=== PATIENT | male | born 1995 | race American Indian/Alaskan Native ===

== ENCOUNTER 2017-07-02 22:17 | Emergency (ER) | payer SELFPAY ==
[2017-07-03] MEDS ORDERED: DUONEB *Not for PRN Use IH ONE (02:28)
[2017-07-03] MEDS ORDERED: DELTASONE PO ONE (02:29)
--- NOTE | 2017-07-03 02:44 | Emergency Department Report ---
Minor Respiratory - HPI Chief Complaint: Upper Respiratory Infection Stated Complaint: COUGH, SNEEZE Time Seen by Provider: 07/03/17 02:28 Duration: 1 wek Severity: mild Minor Respiratory: Yes Able to Tolerate Fluids, Yes Cough, No Rhinorrhea, No Sore Throat, No Ear Pain, No Sick Contacts, No Hemoptysis, No Chest Pain, No Shortness of Breath, No Fever Other History: 21-year-old male with no past medical history has presented to ED complaining of cough. Onset was one week prior. Patient states cough is nonproductive in nature. Cough Intermittent, worse when he is at work and in [employer] freezer, improves and he is at home. Cough has been accompanied with sneezing. Pertinent negatives: Fever/chills, and headache, neck pain, chest pain , hemoptysis. Patient denies recent travel, TB exposure, sick contact exposure. ED Review of Systems ROS: Stated complaint: COUGH, SNEEZE Other details as noted in HPI Constitutional: denies: chills, fever Eyes: denies: eye pain, eye discharge, vision change ENT: congestion. denies: ear pain, throat pain Respiratory: cough. denies: orthopnea, shortness of breath, SOB with exertion, SOB at rest, wheezing Cardiovascular: denies: chest pain, palpitations Endocrine: no symptoms reported Gastrointestinal: denies: abdominal pain, nausea, diarrhea Genitourinary: denies: urgency, dysuria Musculoskeletal: denies: back pain, joint swelling, arthralgia Skin: denies: rash, lesions Neurological: denies: headache, weakness, paresthesias Psychiatric: denies: anxiety, depression Hematological/Lymphatic: denies: easy bleeding, easy bruising ED Past Medical Hx - Social History Smoking Status: Never Smoker Substance Use Type: None - Medications Home Medications: Home Medications Medication Instructions Recorded Confirmed Last Taken Type ALBUTEROL Inhaler [ProAir HFA 1 puff IH QID #1 inha 07/03/17 Unknown Rx Inhaler] Benzonatate [Tessalon Perles] 100 mg PO Q8HR #20 capsule 07/03/17 Unknown Rx predniSONE [Deltasone] 50 mg PO QDAY #4 tab 07/03/17 Unknown Rx Minor Respiratory Exam - Exam General: Vital signs noted. No distress. Alert and acting appropriately. HEENT: Yes Moist Mucous Membranes, No Pharyngeal Erythema, No Pharyngeal Exudates, No Rhinorrhea, No Conjuctival Injection, No Frontal Tenderness, No Maxillary Tenderness Ear: Neither TM Bulge, Neither TM Erythema, Neither EAC Pain, Neither EAC Discharge Neck: Yes Supple, No Adenopathy Lungs: Yes Good Air Exchange, No Wheezes, No Ronchi, No Stridor, No Cough, No Labored Respirations, No Retractions, No Use of Accessory Muscles, No Other Abnormal Lung Sounds Heart: Yes Regular, No Murmur Abdomen: Yes Normal Bowel Sounds, No Tenderness, No Peritoneal Signs Skin: No Rash, No Edema Neurologic: Alert and oriented, no deficits. Musculoskeletal: Unremarkable. ED Course Vital Signs 07/02/17 23:50 Temperature 98.5 F Pulse Rate 77 Respiratory 18 Rate Blood Pressure 129/74 [Left] O2 Sat by Pulse 98 Oximetry - Reevaluation(s) Reevaluation #1: 07/03/17 02:43 pt taken to radiology dept in wheelchair, comfortably in appearance Reevaluation #2: 07/03/17 03:07 pt states symptoms have improved with breathing treatment ED Medical Decision Making - Radiology Data interpreted by me: CXR- negative for acute findings - Medical Decision Making 21-year-old male presenting to the ED complaining of a week of cough and runny nose. Patient likely has upper respiratory infection. Chest x-ray was negative for signs of pneumonia. Patient agrees he feels stable discharge home and follow-up with PCP follow up. Patient verbalized understanding of return precautions. - Differential Diagnosis TB, PE, pneumothorax Critical Care Time: No Critical care attestation.: If time is entered above; I have spent that time in minutes in the direct care of this critically ill patient, excluding procedure time. ED Disposition Clinical Impression: Bronchitis, Cough Clinical Impression: (Ruled Out): Cough due to ALINA inhibitor Disposition: DC-01 TO HOME OR SELFCARE Is pt being admited?: No Does the pt Need Aspirin: No Condition: Good Instructions: Chronic Bronchitis (ED) Prescriptions: ALBUTEROL Inhaler [ProAir HFA Inhaler] 1 puff IH QID #1 inha Benzonatate [Tessalon Perles] 100 mg PO Q8HR #20 capsule predniSONE [Deltasone] 50 mg PO QDAY #4 tab Referrals: PRIMARY CARE, [Primary Care Provider] - 3-5 Days NIKKI RASHEED MD [Staff Physician] - 3-5 Days Forms: Work/School Release Form(ED)
[2017-07-03 05:38] VITALS: BP 127/74
--- NOTE | 2017-07-03 09:10 | XRay Report ---
Chest 2 views: History: Cough. Findings: Normal cardiomediastinal silhouette. Trachea is midline. No consolidation, pneumothorax or pleural effusion. Impression: No acute cardiopulmonary findings.
== END 2017-07-03 04:06 | disposition home or self-care (01) ==
LOC: ED 22:17
DX: J40 Bronchitis, not specified as acute or chronic (principal)
CPT/HCPCS: 71020; 99283; J7512